=== PATIENT | female | born 2000 | race Hispanic/Latino ===

== ENCOUNTER 2019-01-02 10:34 | Emergency (ER) | payer OTHER, SELFPAY ==
--- NOTE | 2019-01-02 10:46 | ER ---
Nurse's Notes [facility] Name: Evelyn Jeffries Age: 18 yrs Sex: Female : 2000 Arrival Date: 01/02/2019 Time: 10:38 Bed Waiting Private MD: None, None Diagnosis: Tinea unguium Presentation: 01/02 10:41 Presenting complaint: Patient states: My right great toe nail is thick and growing la1 weird. Transition of care: patient was not received from another setting of care. Onset of symptoms was January 02, 2019. Risk Assessment: Do you want to hurt yourself or someone else? Patient reports no desire to harm self or others. Initial Sepsis Screen: Does the patient meet any 2 criteria? No. Patient's initial sepsis screen is negative. Does the patient have a suspected source of infection? No. Patient's initial sepsis screen is negative. Care prior to arrival: None. 10:41 Method Of Arrival: Ambulatory la1 10:41 Acuity: JAVIER 5 la1 Triage Assessment: 10:43 General: Appears in no apparent distress. Behavior is calm, cooperative. Pain: Denies la1 pain. Historical: - Allergies: 10:42 No Known Allergies; la1 - PMHx: 10:42 None; la1 - Immunization history:: Adult Immunizations up to date. - Social history:: Smoking status: Patient/guardian denies using tobacco. - Ebola Screening: : No symptoms or risks identified at this time. Screenin:43 Abuse screen: Denies threats or abuse. Nutritional screening: No deficits noted. la1 Tuberculosis screening: No symptoms or risk factors identified. Fall Risk None identified. Assessment: 10:42 Reassessment: Patient is alert, oriented x 3, equal unlabored respirations, skin la1 warm/dry/pink. Derm: Right great toe nail thickened. Vital Signs: 10:42 BP 135 / 92; Pulse 64; Resp 18; Temp 97.3; Pulse Ox 98% on R/A; Weight 79.38 kg; Height la1 5 ft. 2 in. (157.48 cm); 10:42 Body Mass Index 32.01 (79.38 kg, 157.48 cm) la1 ED Course: 10:38 Patient arrived in ED. mr 10:39 None, None is Private Physician. mr 10:39 Elida Tsai FNP-C is [facility]. kb 10:39 Alexx Krause MD is Attending Physician. kb 10:42 Triage completed. la1 10:42 Arm band placed on left wrist. la1 10:43 Call light in reach. la1 10:43 No provider procedures requiring assistance completed. Patient did not have IV access la1 during this emergency room visit. Administered Medications: No medications were administered Outcome: 10:43 Discharged to home ambulatory. la1 10:43 Condition: stable 10:43 Discharge instructions given to patient, Instructed on discharge instructions, follow up and referral plans. Demonstrated understanding of instructions, follow-up care. 10:46 Discharge ordered by MD. kb 10:47 Patient left the ED. la1 Signatures: Elida Tasi FNP-C AIRCRAFT ENGINE INSTALLER-[place] Shailesh Rehana Patrick Hewitt, RN RN la1 Corrections: (The following items were deleted from the chart) 10:47 10:43 Pulse Ox 98.1%; la1 la1
--- NOTE | 2019-01-02 10:47 | EDPHYS ---
Physician Documentation [facility] Name: Evelyn Jeffries Age: 18 yrs Sex: Female : 2000 Arrival Date: 01/02/2019 Time: 10:38 Bed Waiting Private MD: None, None ED Physician Alexx Krause HPI: 01/02 10:48 This 18 yrs old Female presents to ER via Ambulatory with complaints of Toe kb nail problem. 10:49 The patient presents with thick, white, long great toe nail. The complaints affect the kb Left first toenail. Onset: The symptoms/episode began/occurred months ago. Modifying factors: The symptoms are alleviated by nothing, the symptoms are aggravated by nothing. Associated signs and symptoms: The patient has no apparent associated signs or symptoms. Severity of symptoms: At their worst the symptoms were moderate, in the emergency department the symptoms are unchanged. The patient has not experienced similar symptoms in the past. The patient has not recently seen a physician. Historical: - Allergies: 10:42 No Known Allergies; la1 - PMHx: 10:42 None; la1 - Immunization history:: Adult Immunizations up to date. - Social history:: Smoking status: Patient/guardian denies using tobacco. - Ebola Screening: : No symptoms or risks identified at this time. ROS: 10:46 Constitutional: Negative for fever, chills, and weight loss, Cardiovascular: Negative kb for chest pain, palpitations, and edema, Respiratory: Negative for shortness of breath, cough, wheezing, and pleuritic chest pain, Abdomen/GI: Negative for abdominal pain, nausea, vomiting, diarrhea, and constipation, MS/Extremity: Negative for injury and deformity, Neuro: Negative for headache, weakness, numbness, tingling, and seizure. 10:46 MS/extremity: Positive for thick, discolored great toe nail. Exam: 10:47 Constitutional: This is a well developed, well nourished patient who is awake, alert, kb and in no acute distress. Head/Face: Normocephalic, atraumatic. Chest/axilla: Normal chest wall appearance and motion. Nontender with no deformity. No lesions are appreciated. Cardiovascular: Regular rate and rhythm with a normal S1 and S2. No gallops, murmurs, or rubs. Normal PMI, no JVD. No pulse deficits. Respiratory: Lungs have equal breath sounds bilaterally, clear to auscultation and percussion. No rales, rhonchi or wheezes noted. No increased work of breathing, no retractions or nasal flaring. Abdomen/GI: Soft, non-tender, with normal bowel sounds. No distension or tympany. No guarding or rebound. No evidence of tenderness throughout. Neuro: Awake and alert, GCS 15, oriented to person, place, time, and situation. Cranial nerves II-XII grossly intact. Motor strength 5/5 in all extremities. Sensory grossly intact. Cerebellar exam normal. Normal gait. 10:47 Musculoskeletal/extremity: Nails: thick, discolored, long great toenail. Vital Signs: 10:42 BP 135 / 92; Pulse 64; Resp 18; Temp 97.3; Pulse Ox 98% on R/A; Weight 79.38 kg; Height la1 5 ft. 2 in. (157.48 cm); 10:42 Body Mass Index 32.01 (79.38 kg, 157.48 cm) la1 MDM: 10:39 Patient medically screened. kb 10:46 Data reviewed: vital signs, nurses notes. Data interpreted: Pulse oximetry: on room air kb is 98 %. Interpretation: normal. Counseling: I had a detailed discussion with the patient and/or guardian regarding: the historical points, exam findings, and any diagnostic results supporting the discharge/admit diagnosis, the need for outpatient follow up, a development editor, to return to the emergency department if symptoms worsen or persist or if there are any questions or concerns that arise at home. Administered Medications: No medications were administered Disposition: 01/02/19 10:46 Discharged to Home. Impression: Tinea unguium. - Condition is Stable. - Discharge Instructions: Fungal Nail Infection. - Medication Reconciliation Form, Thank You Letter, Antibiotic Education, Prescription Opioid Use form. - Follow up: Private Physician; When: 2 - 3 days; Reason: Recheck today's complaints, Continuance of care, Re-evaluation by your physician. Follow up: Emergency Department; When: As needed; Reason: Worsening of condition. Signatures: Elida Tsai, GARRETTC BAGGAGE PORTER-Patrick Mcintosh RN RN la1 Corrections: (The following items were deleted from the chart) 10:47 10:46 01/02/2019 10:46 Discharged to Home. Impression: Tinea unguium. Condition is la1 Stable. Forms are Medication Reconciliation Form, Thank You Letter, Antibiotic Education, Prescription Opioid Use. Follow up: Private Physician; When: 2 - 3 days; Reason: Recheck today's complaints, Continuance of care, Re-evaluation by your physician. Follow up: Emergency Department; When: As needed; Reason: Worsening of condition. kb
== END 2019-01-02 10:47 | disposition home or self-care (01) ==
LOC: ER 10:34
DX: B35.1 Tinea unguium (principal)
CPT/HCPCS: 99281

== ENCOUNTER 2022-08-31 11:45 | Emergency (ER) | payer OTHER, SELFPAY ==
--- OUTSIDE RECORDS SUMMARY | 2022-08-31 11:49 | XMS REPORT | Continuity of Care Document ---
:2000 Author Organization [facility] t Address [address] [place] [address] Care Team Providers Name Role Phone JUNAID HOU Primary Care Physician Unavailable JUNAID HOU Attending Clinician Unavailable Junaid De Leon Attending Clinician [phone] Doctor Unassigned, [place] Attending Clinician Unavailable locumens Attending Clinician Unavailable locumens Admitting Clinician Unavailable Payers Payer Name Policy Type Policy Number Effective Date Expiration Date Sasha gann [id number] 2021 00:00:00 Problems Condition Condition Condition Status Onset Resolution Last Treating Co mments Source Name Details Category Date Date Treatment Clinician Date Other Other Disease Active Univers general general 3-30 ity of counseling [place] and advice and advice 00 Ut dical for for Branch contracept contracept teri teri management management Congenital Congenital Disease Active Overview : Univers clinodacty clinodacty 6-10 Formattin ity of ly ly 00:00: g of this note Medical might be Branch different from the original. Physical therapy initiated 04/17/2016. Tinea Tinea Disease Active Univers pedis of pedis of 6-10 [place]y of both feet [place] Medication Medication Disease Active Overview : Univers management management -28 Formattin ity of 00:00: g of this note Medical might be Branch different from the original. 04/08/2012 - start Celexa 5 mg 04/08/2012 - start Celexa 5 mg 06/25/2012 - Increase celexa to 10 mg 2- Start Strattera 18 mg BID2011- Increase to Strattera 25 mg BIDLost to follow up. 016 - restarted Strattera , 25 mg daily for one week then 25 mg BID Autism Autism Disease Active Univers 06-25 ity of 00:00: [place] 00 Medical Branch Pervasive Pervasive Disease Active Uni vers developmen developmen 04-08 it y of stoney stoney 00:00: [place] disorder disorder 00 Medica l Branch Social Social Disease Active Univers anxiety anxiety 04-08 ity of disorder disorder 00:00: [place] [id number] Medical Branch Attention Attention Disease Active Uni vers deficit deficit 04-08 ity of hyperactiv hyperactiv 00:00: [facility] ity ity 00 Medical disorder disorder Branch (ADHD), (ADHD), combined combined type type Allergies, Adverse Reactions, Alerts Allergy Allergy Status Severity Reaction(s) Onset Inactive Treating Comm ents Source Name Type Date Date Clinician NO KNOWN Drug Active Univers ALLERGIE Class ity of S [facility] Social History Social Habit Start Date Stop Date Quantity Comments Source Exposure to Not sure [facility] SARS-CoV-2 [facility] (event) Branch Alcohol intake 2022-01-09 2022-01-09 Current [place] of 00:00:00 00:00:00 non-drinker of [facility] alcohol [place] (finding) Tobacco Comment 2012-06-29 2012-06-29 never smoker [facility] ity of 00:00:00 00:00:00 [facility] Sex Assigned At [birth year] Universit y of 00:00:00 00:00:00 [facility] Smoking Status Start Date Stop Date Source Never smoker [facility] Branch Medications Ordered Filled Start Stop Current Ordering Indication Dosage Frequency Signature Comments Components Source Medication Medication Date Date Medication? Clinician (SIG) Name Name ibuprofen Yes 200mg Take 200 Uni vers (ADVIL) 200 3-30 mg by ity of mg tablet 14:13: mouth [place] 38 every 6 Medical (six) Branch hours as needed. atomoxetine Yes [id number] 60mg Take 1 Univers (STRATTERA) 2-24 capsule by it y of 60 mg 00:00: mouth [place] capsule 00 daily. Medical [place] Immunizations Ordered Immunization Filled Immunization Date Status Commen ts Source Name Name Influenza Virus 2022-01-09 Completed Universit y of Vaccine Quad .5 mL IM 00:00:00 [facility] Medical 6+ [place] Branch Meningococcal B, OMV 2016-07-02 Completed Univ ersity of 00:00:00 [facility] HEPATITIS A 2016-05-22 Completed University of 00:00:00 [facility] Meningococcal B, OMV 2016-02-20 Completed Univ ersity of 00:00:00 [facility] Meningococcal 2016-02-20 Completed University of Polysaccharide 00:00:00 [place] [facility] hanh (groups A, C, Y and Branc h W-135) conjugate vaccine (MCV4P) Influenza Virus 2014-09-07 Completed Universit y of Vaccine Quad IM 3+ 00:00:00 [facility] Influenza Virus 2011-11-20 Completed Universit y of Vaccine 00:00:00 [facility] HPV 2011-02-25 Completed University of 00:00:00 [facility] HPV 2010-11-26 Completed University of 00:00:00 [facility] Influenza Virus 2010-08-23 Completed Universit y of Vaccine - Whole 00:00:00 [facility] ical Branch Influenza Virus 2010-08-23 Completed Universit y of Vaccine 00:00:00 [facility] HPV 2010-05-29 Completed University of 00:00:00 [facility] Meningococcal Vaccine 2010-05-29 Completed Uni versity of 00:00:00 [facility] TDAP 2010-05-29 Completed University of 00:00:00 [facility] H1n1 Vaccine 2009-09-19 Completed University o f 00:00:00 [facility] Influenza Virus 2008-08-05 Completed Universit y of Vaccine 00:00:00 [facility] Varicella 2008-08-05 Completed University of (varivax)(chicken 00:00:00 [place] M edical pox) Branch HEPATITIS A 2007-06-10 Completed University of 00:00:00 [facility] DTAP 2003-06-02 Completed University of 00:00:00 [facility] MMR 2003-06-02 Completed University of 00:00:00 [facility] Polio (IPV/OPV) 2003-06-02 Completed Universit y of 00:00:00 [facility] Varicella 2000-05-07 Completed University of (varivax)(chicken 00:00:00 [facility] edical pox) Branch DTAP 2000-02-08 Completed University of 00:00:00 [facility] HIB 4 Dose Schedule 2000-02-08 Completed Unive rsity of 00:00:00 [facility] Branch MMR 2000-02-08 Completed University of 00:00:00 [facility] Polio (IPV/OPV) 2000-02-08 Completed Universit y of 00:00:00 [facility] Branch DTAP 2000 Completed University of 00:00:00 [facility] HIB 4 Dose Schedule 2000 Completed Unive rsity of 00:00:00 [facility] Hep B, Adol or Pedi 2000 Completed Unive rsity of Dosage 00:00:00 [facility] DTAP 2000 Completed University of 00:00:00 [facility] HIB 4 Dose Schedule 2000 Completed Unive rsity of 00:00:00 [facility] Polio (IPV/OPV) 2000 Completed Universit y of 00:00:00 [facility] DTAP 2000 Completed University of 00:00:00 [facility] HIB 4 Dose Schedule 2000 Completed Unive rsity of 00:00:00 [facility] Hep B, Adol or Pedi 2000 Completed Unive rsity of Dosage 00:00:00 [facility] Polio (IPV/OPV) 2000 Completed Universit y of 00:00:00 [facility] Hep B, Adol or Pedi 2000 Completed Unive rsity of Dosage 00:00:00 [facility] Vital Signs Vital Name Observation Time Observation Value Comments Source Systolic blood 2022-01-09 19:13:00 142 mm[Hg] Univer sity of pressure [facility] Diastolic blood 2022-01-09 19:13:00 92 mm[Hg] Unive rsity of pressure [facility] Heart rate 2022-01-09 19:00:00 88 /min Universi ty of [facility] Body temperature 2022-01-09 19:00:00 36.89 Orin Univ ersity of [facility] Respiratory rate 2022-01-09 19:00:00 18 /min Univ ersity [facility] Body height 2022-01-09 19:00:00 160 cm [facility] Body weight 2022-01-09 19:00:00 85.322 kg [facility] BMI 2022-01-09 19:00:00 33.32 kg/m2 [facility] Procedures Procedure Date / Time Performed Performing Clinician Sourc e FLU VACC ([id number]), 2022-01-09 19:20:16 Junaid Hou [facility] 6+ MONTHS, IM, QUAD Medical Bran ch Encounters Start End Encounter Admission Attending Care Care Encounter Source Date/Time Date/Time Type Type Clinicians Facility Department ID 2022-01-09 2022-01-09 Outpatient R SAVI [facility] [id number] Univers 13:30:00 14:51:08 JUNAID hurst [facility] 2022-01-09 2022-01-09 Outpatient R SAVI [facility] [id number] Univers 13:30:00 14:51:08 JUNAID hurst [facility] 2022-01-09 2022-01-09 Office Savi [facility] [id number] Univers 13:30:00 14:51:08 Visit Junaid Ramirez CLINICAL GENETICIST [id number] ity of [facility] [id number] [place] as MATERNAL [id number] Med ical & CHILD [address] [place] [address] 2022-01-09 2022-01-09 Orders Doctor JOCELIN [id number] Univers 00:00:00 00:00:00 Only Unassigned, TARA [id number] ity of [place] [facility] [id number] [place] as [id number] [place] [address] Branch 2020-01-07 2020-01-07 Outpatient locumens [facility] [id number] [place] 11:36:00 11:36:00 0327 [facility] Results This patient has no known results.
[2022-08-31 12:14] LABS: Absolute Lymphocytes (CBC) 3.9 K/uL (0.7-4.9); Hematocrit 41.1 % (36.0-45.0); Lymphocytes % 24.9 % (15.3-44.8); RBC Red Blood Cell Count 5.01 M/uL (3.86-4.86)
[2022-08-31 12:27] LABS: Potassium 3.6 mmol/L (3.5-5.1)
[2022-08-31] MEDS ORDERED: ONDANSETRON 4 MG/2 ML VIAL ONE (12:33)
[2022-08-31] MEDS ORDERED: FENTANYL CITR 100 MCG/2 ML ONE (12:33)
[2022-08-31] MEDS ORDERED: NA CHLORIDE 0.9% 1,000 ML ONE (12:33)
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
[2022-08-31] MEDS ORDERED: KETOROLAC 30 MG/ML INJ ONE (15:45)
[2022-08-31 17:30] VITALS: TEMP 98.3; O2SAT 100
[2022-08-31 17:34] VITALS: BP 101/66
== END 2022-08-31 17:04 | disposition home or self-care (01) ==
LOC: ER 11:45
DX: S10.91XA Abrasion of unspecified part of neck, initial encounter (principal); S30.1XXA Contusion of abdominal wall, initial encounter; V49.59XA Passenger injured in collision with other motor vehicles in traffic accident, initial encounter
CPT/HCPCS: 96361; 85025; 80048; 36415; 86900; 86850; 86901; 70450; 71250; 72125; 96375; 96374; 99284; J3010; J7030; J2405

== ENCOUNTER 2022-09-05 13:10 | Emergency (ER) | payer SELFPAY ==
--- OUTSIDE RECORDS SUMMARY | 2022-09-05 13:13 | XMS REPORT | Continuity of Care Document ---
:2000 Author Organization [facility] t Address [address] [place] [address] Care Team Providers Name Role Phone JUNAID HOU Primary Care Physician Unavailable JUNAID HOU Attending Clinician Unavailable Racheal Junaid PÉREZ Attending Clinician [phone] Doctor Unassigned, [place] Attending Clinician Unavailable locumens Attending Clinician Unavailable locumens Admitting Clinician Unavailable Payers Payer Name Policy Type Policy Number Effective Date Expiration Date Sasha gann [id number] 2021 00:00:00 Problems Condition Condition Condition Status Onset Resolution Last Treating Co mments Source Name Details Category Date Date Treatment Clinician Date Other Other Disease Active Univers general general 3-30 ity of counseling [place] advice and advice 00 Ok dical for for Branch contracept contracept teri teri management management Congenital Congenital Disease Active Overview : Univers clinodacty clinodacty 6-10 Formattin ity of ly ly 00:00: g of this [place] note Medical might be Branch different from the original. Physical therapy initiated 04/17/2016. Tinea Tinea Disease Active Univers pedis of pedis of 6-10 [place] of both feet [place] Medication Medication Disease Active Overview : Univers management management 3-28 Formattin ity of 00:00: g of this [place] note Medical might be Branch different from the original. 04/08/2012 - start Celexa 5 mg 04/08/2012 - start Celexa 5 mg 06/25/2012 - Increase celexa to 10 mg 2- Start Strattera 18 mg BID2011- Increase to Strattera 25 mg BIDLost to follow up. 016 - restarted Strattera , 25 mg daily for one week then 25 mg BID Autism Autism Disease Active Univers - ity of 00:00: [place] [id number] Medical Branch Pervasive Pervasive Disease Active Uni vers developmen developmen 04-08 it y of stoney stoney 00:00: [place] disorder disorder 00 Medica l Branch Social Social Disease Active Univers anxiety anxiety 04-08 ity of disorder disorder 00:00: [place] [id number] Medical Branch Attention Attention Disease Active Uni vers deficit deficit 04-08 ity of hyperactiv hyperactiv 00:00: [place] ity 00 Medical disorder disorder Branch (ADHD), (ADHD), combined combined type type Allergies, Adverse Reactions, Alerts Allergy Allergy Status Severity Reaction(s) Onset Inactive Treating Comm ents Source Name Type Date Date Clinician NO KNOWN Drug Active Univers ALLERGIE Class ity of S [facility] Social History Social Habit Start Date Stop Date Quantity Comments Source Exposure to Not sure [facility] SARS-CoV-2 [facility] (event) [place] Alcohol intake 2022-01-09 2022-01-09 Current University of 00:00:00 00:00:00 non-drinker of [facility] alcohol [place] (finding) Tobacco Comment 2012-06-29 2012-06-29 never smoker Univers ity of 00:00:00 00:00:00 [facility] Sex Assigned At [birth year] Universit y of 00:00:00 00:00:00 [facility] Smoking Status Start Date Stop Date Source Never smoker [facility] Medications Ordered Filled Start Stop Current Ordering Indication Dosage Frequency Signature Comments Components Source Medication Medication Date Date Medication? Clinician (SIG) Name Name ibuprofen Yes 200mg Take 200 Uni vers (ADVIL) 200 3-30 mg by ity of mg tablet 14:13: mouth [place] 38 every 6 Medical (six) Branch hours as needed. atomoxetine Yes [id number] 60mg Take 1 Univers (STRATTERA) 2-24 capsule by it y of 60 mg 00:00: mouth [place] capsule 00 daily. Medical Branch Immunizations Ordered Immunization Filled Immunization Date Status Commen ts Source Name Name Influenza Virus 2022-01-09 Completed Universit y of Vaccine Quad .5 mL IM 00:00:00 [facility] 6+ MO Branch Meningococcal B, OMV 2016-07-02 Completed Univ ersity of 00:00:00 [facility] HEPATITIS A 2016-05-22 Completed University of 00:00:00 [facility] Meningococcal B, OMV 2016-02-20 Completed Univ ersity of 00:00:00 [facility] Meningococcal 2016-02-20 Completed University of Polysaccharide 00:00:00 [facility] hanh (groups A, C, Y and Branc h W-135) conjugate vaccine (MCV4P) Influenza Virus 2014-09-07 Completed Universit y of Vaccine Quad IM 3+ 00:00:00 [facility] Influenza Virus 2011-11-20 Completed Universit y of Vaccine 00:00:00 [facility] HPV 2011-02-25 Completed University of 00:00:00 [facility] HPV 2010-11-26 Completed University of 00:00:00 [facility] Influenza Virus 2010-08-23 Completed Universit y of Vaccine - Whole 00:00:00 [facility] ical Branch Influenza Virus 2010-08-23 Completed Universit y of Vaccine 00:00:00 [facility] HPV 2010-05-29 Completed University of 00:00:00 [facility] Meningococcal Vaccine 2010-05-29 Completed Uni versity of 00:00:00 [facility] TDAP 2010-05-29 Completed University of 00:00:00 [facility] H1n1 Vaccine 2009-09-19 Completed University o f 00:00:00 [facility] Influenza Virus 2008-08-05 Completed Universit y of Vaccine 00:00:00 [facility] Varicella 2008-08-05 Completed University of (varivax)(chicken 00:00:00 [facility] edical pox) Branch HEPATITIS A 2007-06-10 Completed University of 00:00:00 [facility] DTAP 2003-06-02 Completed University of 00:00:00 [facility] MMR 2003-06-02 Completed University of 00:00:00 [facility] Polio (IPV/OPV) 2003-06-02 Completed Universit y of 00:00:00 [facility] Varicella 2000-05-07 Completed University of (varivax)(chicken 00:00:00 [facility] edical pox) Branch DTAP 2000-02-08 Completed University of 00:00:00 [facility] HIB 4 Dose Schedule 2000-02-08 Completed Unive rsity of 00:00:00 [facility] MMR 2000-02-08 Completed University of 00:00:00 [facility] Polio (IPV/OPV) 2000-02-08 Completed Universit y of 00:00:00 [facility] DTAP 1999 Completed University of 00:00:00 [facility] HIB 4 Dose Schedule 1999 Completed Unive rsity of 00:00:00 [facility] Hep B, Adol or Pedi 1999 Completed Unive rsity of Dosage 00:00:00 [facility] DTAP 1999 Completed University of 00:00:00 [facility] HIB 4 Dose Schedule 1999 Completed Unive rsity of 00:00:00 [facility] Polio (IPV/OPV) 1999 Completed Universit y of 00:00:00 [facility] DTAP 1999 Completed University of 00:00:00 [facility] HIB 4 Dose Schedule 1999 Completed Unive rsity of 00:00:00 [facility] Hep B, Adol or Pedi 1999 Completed Unive rsity of Dosage 00:00:00 [facility] Polio (IPV/OPV) 1999 Completed Universit y of 00:00:00 [facility] Hep B, Adol or Pedi 1999 Completed Unive rsity of Dosage 00:00:00 [facility] Vital Signs Vital Name Observation Time Observation Value Comments Source Systolic blood 2022-01-09 19:13:00 142 mm[Hg] Univer sity of pressure [facility] Diastolic blood 2022-01-09 19:13:00 92 mm[Hg] Unive rsity of pressure [facility] Heart rate 2022-01-09 19:00:00 88 /min Universi ty of [facility] Body temperature 2022-01-09 19:00:00 36.89 Orin Univ ersity of [facility] Respiratory rate 2022-01-09 19:00:00 18 /min [facility] Body height 2022-01-09 19:00:00 160 cm [facility] Body weight 2022-01-09 19:00:00 85.322 kg [facility] BMI 2022-01-09 19:00:00 33.32 kg/m2 [facility] Procedures Procedure Date / Time Performed Performing Clinician Sourc e FLU VACC ([id number]), 2022-01-09 19:20:16 Junaid Hou U [facility] 6+ MONTHS, IM, QUAD Medical Bran ch Encounters Start End Encounter Admission Attending Care Care Encounter Source Date/Time Date/Time Type Type Clinicians Facility Department ID 2022-01-09 2022-01-09 Outpatient Ana HOU [facility] [id number] Univers 13:30:00 14:51:08 JUNAID hurst [facility] 2022-01-09 2022-01-09 Outpatient Ana HOU [facility] [id number] Univers 13:30:00 14:51:08 JUNAID hurst [facility] 2022-01-09 2022-01-09 Office Racheal [facility] [id number] Univers 13:30:00 14:51:08 Visit Junaid Ramirez 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
[2022-09-05 13:57] LABS: Urine Blood 1+ (Negative); Urine Glucose Negative (Negative); Urine Protein Negative (Negative)
[2022-09-05 14:14] LABS: Absolute Lymphocytes (CBC) 2.4 K/uL (0.7-4.9); Hematocrit 36.3 % (36.0-45.0); Lymphocytes % 29.5 % (15.3-44.8); MCV 81.7 fL (80-100); RBC Red Blood Cell Count 4.45 M/uL (3.86-4.86)
[2022-09-05 14:19] LABS: Urine Bacteria 20-50 /HPF (<20); Urine Mucus 2+ /HPF (None Seen); Urine RBC <5 /HPF (None Seen)
[2022-09-05 14:37] LABS: Albumin 3.9 g/dL (3.4-5.0); Bilirubin Total 0.9 mg/dL (0.2-1.0); Potassium 3.6 mmol/L (3.5-5.1); Protein, Total 8.1 g/dL (6.4-8.2)
--- NOTE | 2022-09-05 16:44 | RAD REPORT ---
EXAM DESCRIPTION: CT - Abdomen Pelvis W Contrast - 09/05/2022 4:08 pm CLINICAL HISTORY: Abdominal pain COMPARISON: none. TECHNIQUE: Computed axial tomography of the abdomen pelvis was obtained. 100 cc Isovue-300 was admin istered intravenously. Oral contrast was not requested which limits evaluation of bowel and appendix All CT scans are performed using dose optimization technique as appropriate and may include automated exposure control or mA/KV adjustment according to patient size. FINDINGS: The liver, spleen, pancreas, adrenal and kidneys appear unremarkable. There is no evidence of diverticulitis. 2.5 centimeter left ovarian cyst without significant free fluid Normal appendix Moderate stranding within it the anterior subcutaneous fat pelvis Small umbilical hernia IMPRESSION: 2.5 centimeter left ovarian cyst without significant free fluid Moderate stranding within the anterior subcutaneous fat pelvis could be related to inflammation or tr auma
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
[2022-09-05 17:41] VITALS: TEMP 99
[2022-09-05 17:45] VITALS: BP 107/83; O2SAT 100
== END 2022-09-05 17:37 | disposition home or self-care (01) ==
LOC: ER 13:10
DX: N39.0 Urinary tract infection, site not specified (principal)
CPT/HCPCS: 36415; 74177; 80053; 81003; 81015; 81025; 83690; 85025; 99284; Q9967